=== PATIENT | female | born 1995 | race Two or more races ===

== ENCOUNTER 2018-05-04 17:07 | Emergency (ER) | payer OTHER ==
[~2018-05-04] VITALS: Ht 162.6 cm; Wt 68.0 kg
[2018-05-04] MEDS ORDERED: ISOT20CA PO (17:32)
[2018-05-04] MEDS ORDERED: ERYTHROMYCIN 0.5% 3.5 GM TUBE OPHTHALMIC OINTMENT OS ONE (18:45)
[2018-05-04 19:21] VITALS: BP 118/75
== END 2018-05-04 19:24 | disposition home or self-care (01) ==
LOC: EMS 17:13
DX: H00.014 Hordeolum externum left upper eyelid (principal)